=== PATIENT | male | born 1970 | race Caucasian/White ===

== ENCOUNTER 2018-04-27 17:33 | Emergency (ER) | payer BC, OTHER ==
[2018-04-27] MEDS: ONDANSETRON (ODT) 4 MG TAB ODT (19:14)
[2018-04-27] MEDS: ACETAMINOPHEN 325 MG TAB PO (20:30)
== END 2018-04-27 21:40 | disposition home or self-care (01) ==
LOC: FTE 17:33
DX: J10.1 Influenza due to other identified influenza virus with other respiratory manifestations (principal)
CPT/HCPCS: 71046; 87400; 99284-25